=== PATIENT | female | born 1935 | race Caucasian/White ===

== ENCOUNTER 2017-03-20 11:10 | Outpatient (CLI) | payer MEDICARE, BC ==
--- NOTE | 2017-03-20 12:48 | RAD ---
TWO VIEWS OF THE CHEST: HISTORY: Cough. COMPARISON: 04/28/2011 FINDINGS: Two views of the chest show an enlarged cardiomediastinal silhouette with atherosclerotic calcificati ons in the aorta. Increased interstitial markings are present. A calcified granuloma projects over the right thorax. There is no evidence of consolidation or pleural effusion. Degenerative changes a re seen in the spine. IMPRESSION: No evidence of acute cardiopulmonary disease. POS: [facility]
== END 2017-03-20 11:11 | disposition home or self-care (01) ==
LOC: RAD-FRANK 11:10
PROVIDERS: ATTEND Nurse Practitioner Family
DX: R05 Cough (principal)
CPT/HCPCS: 71046

== ENCOUNTER 2017-08-25 09:20 | Outpatient (CLI) | payer MEDICARE, BC ==
--- NOTE | 2017-08-25 10:22 | RAD ---
CHEST 2 VIEWS: HISTORY: Cough. COMPARISON: 03/20/17. FINDINGS: Cardiac silhouette is enlarged. Pulmonary vasculature unremarkable. Lungs remain hyperinflated. Me diastinum midline with aortic calcification. Calcified granulomata are consistent with healed granul omatous disease. No lobar consolidation, pneumothorax, or pleural fluid. IMPRESSION: 1. Cardiomegaly. 2. Chronic obstructive pulmonary disease. 3. Atherosclerosis. POS: [facility]
== END 2017-08-25 09:21 | disposition home or self-care (01) ==
LOC: RAD-FRANK 09:20
PROVIDERS: ATTEND Nurse Practitioner Family
DX: R05 Cough (principal); J44.9 Chronic obstructive pulmonary disease, unspecified; I51.7 Cardiomegaly; I70.0 Atherosclerosis of aorta
CPT/HCPCS: 71046

== ENCOUNTER 2019-05-04 19:03 | Observation (INO) | payer MEDICARE, BC ==
[2019-05-04 19:51] LABS: #Basophils 0.1 thou/uL (0.0-0.2); #Eosinphils 0.3 thou/uL (0.0-0.7); #Lymphocytes 1.8 thou/uL (1.20-3.40); #Neutrophils 13.9 thou/uL (1.40-6.50); %Basophils 0.3 % (0.0-1.0); %Eosinophils 1.7 % (0.0-10.0); %Lymphocytes 10.6 % (21.0-51.0); %Neutrophils 81.4 % (42.0-75.0); Hemoglobin 14.4 g/dL (12.0-16.0); Mean Corpuscular Hemoglobin 31.7 pg (27.0-31.0); Mean Corpuscular Volume 93.2 fL (78.0-98.0); Mean Platelet Volume 8.9 fL (7.4-10.4); Platelet Count 217 thou/uL (130-400); RBC Distribution Width 12.4 % (11.5-14.5); Red Blood Cell (RBC) Count 4.54 mill/uL (4.20-5.40)
[2019-05-04 20:11] LABS: ALT (SGPT) 11 U/L (8-55); AST (SGOT) 11 U/L (5-34); Albumin 4.1 g/dL (3.4-4.8); Alkaline Phosphatase 112 U/L (40-110); Anion Gap 18 mmol/L (10-20); BUN (Urea Nitrogen) 23 mg/dL (9.8-20.1); Bilirubin, Total 0.7 mg/dL (0.2-1.2); CK (CPK) 35 U/L (29-168); Calc. Creatinine Clearance 0 mL/min (70-130); Calcium 9.9 mg/dL (7.8-10.44); Carbon Dioxide 24 mmol/L (23-31); Chloride 98 mmol/L (98-107); Estimated GFR-MDRD 28; Globulin 3.2 g/dL (2.4-3.5); Glucose 293 mg/dL (83-110); Potassium 3.8 mmol/L (3.5-5.1); Protein, Total 7.3 g/dL (6.0-8.3); Sodium 136 mmol/L (136-145)
--- NOTE | 2019-05-04 20:29 | RAD ---
Portable frontal chest radiograph: 05/04/2019 COMPARISON: 09/05/2010 and 08/25/2017 HISTORY: Chest pain and back pain FINDINGS: There is atherosclerotic calcification of the aortic arch. There is stable enlargement of t he cardiac silhouette. No pneumothorax or pleural fluid. No focal consolidation or alveolar edema. IMPRESSION: No acute findings.
[2019-05-04] MEDS ORDERED: Ondansetron PF 4 MG/2 ML Vial ONE (21:04)
[2019-05-04] MEDS ORDERED: Piperacillin/Tazobactam 4.5 GM VIAL ONE (22:08)
[2019-05-04] MEDS ORDERED: cefTRIAXone\\ROCEPHIN 2 GM VIAL ONE (22:08)
[2019-05-04] MEDS ORDERED: Nitroglycerin 0.4 MG TAB (25 Tab Bottle) PO PRN (22:23)
[2019-05-04] MEDS ORDERED: Aspirin 325 MG TAB PO SCH (22:45)
[2019-05-04 23:09] LABS: Bilirubin Negative (Negative); Blood, Urine Trace (Negative); Glucose, Urine (Dipstick) 500 mg/dL (Negative); Leukocyte Negative (Negative); Nitrite Negative (Negative); Protein, Urine (Dipstick) Trace mg/dL (Neg-Trace); Urobilinogen 0.2 mg/dL (Less than 2)
[2019-05-04 23:12] LABS: Clarity Hazy (Clear)
[2019-05-04 23:13] LABS: Bacteria/HPF None Seen HPF (None Seen); RBC/HPF 0-3 HPF (0-3); Squamous Epithelial 0-3 HPF (0-3); WBC/HPF 0-3 HPF (0-3)
[2019-05-04 23:42] LABS: Troponin I 0.022 ng/mL (< 0.028)
[2019-05-04 23:47] VITALS: BMI 31.3
[2019-05-04] MEDS ORDERED: Ondansetron ODT 4 MG TAB SL PRN (23:52)
[2019-05-04] MEDS ORDERED: Ondansetron PF 4 MG/2 ML Vial IVP PRN (23:52)
[2019-05-04] MEDS ORDERED: Acetaminophen 325 MG TAB PO PRN (23:52)
[2019-05-05] MEDS: Sodium Chloride 0.9% 1,000 ML IV SCH ×2 (00:21→04:25)
[2019-05-05 00:40] LABS: Lactic Acid 3.1 mmol/L (0.5-2.2)
[2019-05-05 01:50] LABS: Troponin I 0.028 ng/mL (< 0.028)
--- NOTE | 2019-05-05 03:30 | HP ---
CHIEF COMPLAINT: Chest pain. HISTORY OF PRESENT ILLNESS: Ms. Sanchez is an 84-year-old female with past medical history of atrial fibrillation, hypertension, skin cancer, who presents to the emergency room with chest pain and nausea that started earlier today. The patient reported that she initially felt pain which was described like a broken rib only when rolling over. She states she went out to a restaurant when she experienced sudden onset of chest pain and nausea. The chest pain resolved, but it came back again. She said that her blood sugar has been running 191 lately. The patient has a history of heart attack in the past. Initial workup in the emergency room, the patient was found to be in acute renal failure, appears dehydrated. Creatinine is 1.7. Lactic acid is elevated at 3.3. WBC count elevated at 17.0. Urinalysis is still pending at the time of this dictation. Initial troponin 0.02. EKG, no acute changes. Given the patient's presentation and risk factors, the patient is being admitted to the hospital for further management. PAST MEDICAL HISTORY: As mentioned above in the history of present illness. PAST SURGICAL HISTORY: Breast biopsy. SOCIAL HISTORY: Denies smoking, alcohol drinking, or drug abuse. FAMILY HISTORY: Reviewed and noncontributory. HOME MEDICATIONS: Please see home medication reconciliation form for updated medications. ALLERGIES: ALLERGIC TO DEMEROL, MORPHINE. REVIEW OF SYSTEMS: Review of 14 systems negative except what is mentioned in history of present illness. PHYSICAL EXAMINATION: GENERAL: The patient is awake, alert, in moderate distress. VITAL SIGNS: Blood pressure 158/83, respiratory rate is 18, pulse is 85, temperature 98.6. HEAD AND NECK: Normocephalic, atraumatic. NECK: Supple. No JVD. CHEST: Fair bilateral entry. HEART: Irregularly irregular. ABDOMEN: Soft, nontender. Bowel sounds present. NEUROLOGIC: Awake, alert, oriented x3. PSYCHIATRIC: Normal mood. EXTREMITIES: No clubbing or cyanosis. LABORATORY DATA: As mentioned above in history of present illness. Chest x-ray, no acute finding. ASSESSMENT: 1. Acute chest pain, rule out acute coronary syndrome. 2. Acute kidney injury. 3. Atrial fibrillation. 4. Leukocytosis. PLAN: 1. Admit. 2. Telemetry monitoring. 3. Serial troponins. 4. Follow urinalysis results. In the meantime, patient will be given one dose of IV antibiotic, reassess in a.m. 5. IV fluid hydration. 6. Monitor kidney function and urine output. 7. Reconcile home medications. 8. DVT prophylaxis as appropriate. 9. Expected length of stay, at least 1 midnight if patient is stable and further workup negative. Job ID: [id number]
[2019-05-05] MEDS ORDERED: Heparin 5,000 UNITS/ML VIAL SC SCH (09:00)
[2019-05-05] MEDS ORDERED: Aspirin 325 mg Enteric Coated Tablet PO SCH (09:00)
[2019-05-05 11:28] LABS: #Basophils 0.1 thou/uL (0.0-0.2); #Eosinphils 0.3 thou/uL (0.0-0.7); #Lymphocytes 1.8 thou/uL (1.20-3.40); #Monocytes 0.6 thou/uL (0.11-0.59); #Neutrophils 7.5 thou/uL (1.40-6.50); %Basophils 0.5 % (0.0-1.0); %Eosinophils 2.5 % (0.0-10.0); %Lymphocytes 17.3 % (21.0-51.0); %Neutrophils 73.6 % (42.0-75.0); Hemoglobin 13.3 g/dL (12.0-16.0); Mean Corpuscular HGB CONC 33.9 g/dL (32.0-36.0); Mean Corpuscular Hemoglobin 31.6 pg (27.0-31.0); Mean Platelet Volume 8.5 fL (7.4-10.4); Platelet Count 184 thou/uL (130-400); RBC Distribution Width 12.3 % (11.5-14.5); White Blood Cell (WBC) Count 10.2 thou/uL (4.8-10.8)
[2019-05-05 11:52] LABS: Anion Gap 13 mmol/L (10-20); BUN (Urea Nitrogen) 11 mg/dL (9.8-20.1); Calc. Creatinine Clearance 75 mL/min (70-130); Calcium 8.9 mg/dL (7.8-10.44); Carbon Dioxide 26 mmol/L (23-31); Chloride 104 mmol/L (98-107); Estimated GFR-MDRD 65; Glucose 168 mg/dL (83-110); Potassium 3.4 mmol/L (3.5-5.1); Sodium 140 mmol/L (136-145)
[2019-05-05] MEDS ORDERED: Potassium Chloride 20 MEQ TAB PO SCH (13:00)
[2019-05-05 14:02] LABS: Lactic Acid 1.5 mmol/L (0.5-2.2)
--- NOTE | 2019-05-05 15:25 | RAD ---
Thoracic spine 2 views HISTORY: Back pain. FINDINGS: There are 12 thoracic type vertebrae. Pedicles are intact. Moderate S shaped rotatory scoli otic curvature. Vertebral body heights are maintained on the lateral view. Osteophytosis throughout the vertebral bodies and facets. Osseous structures are demineralized. IMPRESSION: Osseous degenerative changes. No compression fracture is apparent on this exam. CT thorac ic spine is pending. Osteoporosis.
[2019-05-05] MEDS ORDERED: Ondansetron PF 4 MG/2 ML Vial IVP PRN (15:35)
--- NOTE | 2019-05-05 15:36 | CT ---
CT chest noncontrast CT thoracic spine noncontrast HISTORY: Chest and back pain. FINDINGS: Scattered areas of brachial scarring are present throughout each lung. No lobar consolidati on. Calcified granulomata are consistent with healed granulomatous disease. A groundglass and a solid tiny nodule within the lateral segment right middle lobe are stable. No pleural fluid or pneumo thorax. Heart is enlarged. Lack of contrast limits evaluation of the soft tissues. Nonspecific lymph nodes ar e scattered throughout the mediastinum. The partially calcified lobular soft tissue density nodule within the prevascular space of the mediastinum is unchanged from the 2016 exam. Within the partially visualized upper abdomen, cysts are again seen within the liver. Gallbladder is surgically absent. Large area of dystrophic calcification within the spleen is stable. The inferior most images partiall y demonstrate an exophytic 1.0 cm hyperdense cyst at the posterior cortex of the left kidney. This area has not been imaged on previous exams. Old healed fracture of the posterior aspect of right rib 10. No acute rib fractures are apparent. Vertebral body heights and alignment of the thoracic spine are maintained. Very mild S-shaped curvatu re on the coronal reformatted images. Osteophytosis throughout the vertebral bodies and facets. IMPRESSION: Old healed right posterior 10th rib fracture. No acute injury is evident. Cardiomegaly. Chronic-type findings are stable. Atherosclerosis. No evidence of acute rib fracture or vertebral fracture.
[2019-05-05 16:22] VITALS: TEMP 98.5
[2019-05-05] MEDS ORDERED: Carvedilol 6.25 MG TAB PO SCH (17:00)
[2019-05-05] MEDS ORDERED: NIFEdipine XL 30 MG TAB PO SCH (17:30)
[2019-05-05 17:53] VITALS: BP 174/91
[2019-05-05] MEDS ORDERED: cefTRIAXone\\ROCEPHIN 1 GM in Sodium Chloride 0.9% 100 ML IVPB SCH (22:00)
[2019-05-06] MEDS ORDERED: NIFEdipine XL 30 MG TAB PO SCH (09:00)
--- NOTE | 2019-05-07 07:53 | DIS ---
DATE OF ADMISSION: 05/04/2019 DATE OF DISCHARGE: 05/05/2019 DISCHARGE DIAGNOSES: Chest and back pain likely secondary to musculoskeletal etiology, Severe dehydration, hypokalemia, lactic acidosis, acute renal failure. CONSULTATIONS: None. PROCEDURES: None. BRIEF HISTORY OF PRESENT ILLNESS: This is an 84-year-old female with a past medical history of atrial fibrillation, hypertension, skin cancer, presented with chest pain and nausea. The patient states that she went out to a restaurant and ate some fried food. Shortly after, she had described chest pain in the anterior part of her chest as well as severe back pain. The patient describes her back pain as a stabbing sensation and her chest pain as a soreness. She states that her pain was worse with moving and turning in certain positions. It was also worse with ambulating. It had resolved and then reoccurred, so she decided to come to the emergency room. She denied any arm numbness, palpitations, diaphoresis, shortness of breath. Upon arrival to the emergency room, her vital signs were unremarkable except for a blood pressure of 170. She did have a white count of 17, and a lactic acid of 3.3. She was given ceftriaxone empirically for possible pneumonia and she was admitted for further workup. HOSPITAL COURSE: Chest pain/back pain: The patient had EKG, which showed no new changes. Troponins were negative x3. The patient was noted to have spinal tenderness in her thoracic spine around T4. She also had some rib tenderness around T7 anteriorly. She does have subluxation of her ribs bilaterally in the front. She did have a CT scan of her chest, which showed old rib fracture in the 10th rib on the right. No new rib fractures. Thoracic spine x-ray showed degenerative changes. The patient is in no significant pain on the day of discharge. She had recent stress test 6 months ago that was normal, so coronary etiology was less likely. She will follow up with her PCP in a week. Lactic acidosis secondary to dehydration/acute renal failure: The patient presented with a lactic acid of 3.3. She did have blood cultures that were negative. Flu panel was negative and urine culture was normal. Chest x-ray showed no evidence of pneumonia. She was treated with IV fluids and her lactic acidosis resolved. Her antihypertensives were initially held and two of them resumed on the day of discharge. She did have a CT scan of her chest done on the day of discharge due to complaints of rib pain. This showed no evidence of any rib fracture or pneumonia. She was discharged without any antibiotics. Leukocytosis: The patient had a white count of 17 on admission. She was afebrile while in the hospital. Blood cultures, influenza, urine culture, CT chest showed no evidence of infection. She was discharged without any antibiotics. She can have repeat CBC with her PCP. Hypokalemia: The patient had a potassium of 3.4 on the day of discharge. This was replaced. She should have her repeat BMP done as an outpatient. Hypertension: The patient's hypertensives were initially held. Her blood pressure then increased to 170 and her nifedipine and Coreg were resumed with improvement in her blood pressure. She was advised to hold her lisinopril given her acute kidney injury on presentation, resume it only if her blood pressure is greater than 140. DISCHARGE PHYSICAL EXAMINATION: VITAL SIGNS: Temperature 98.3, heart rate 78, respiratory rate 16, O2 saturation 96% on room air, blood pressure 161/77. GENERAL: The patient is alert, awake, oriented x3. CVS: Regular rate and rhythm with no murmurs, rubs, or gallops. LUNGS: Clear to auscultation bilaterally. ABDOMEN: Positive bowel sounds, soft, nontender, nondistended. EXTREMITIES: No edema. MUSCULOSKELETAL: The patient has rib tenderness on the left rib around T7 and has spinal tenderness on T4 in the spinal area. PERTINENT LABORATORY DATA: CBC 05/04: Unremarkable. BMP 05/04: Potassium is 3.4. Lactic acid: 3.3, 3.1, 1.5. Troponin I: 0.023, 0.022, 0.028. UA 05/03: Glucose 500, trace blood, 4 to 6 hyaline casts. IMAGING STUDIES: Chest x-ray 05/03: No acute findings. CT chest noncontrast: There is old right posterior 10th rib fracture. There is a 1 cm hyperdense cyst at the left kidney. Nonspecific lymph nodes scattered throughout the mediastinum. Large area of dystrophic calcification within the spleen is stable. Calcified granuloma consistent with a healed granulomatous disease. Solitary nodule within the lateral segment of right middle lobe is stable. There is cardiomegaly. No evidence of acute rib fracture or vertebral fracture. Thoracic spine x-ray, 05/04: non degenerative changes. Osteoporosis. DISCHARGE CONDITION: Stable. ACTIVITY: As tolerated. DIET: Heart healthy diet. DISCHARGE MEDICATIONS: All home medications were resumed. The patient is advised to hold her lisinopril unless her blood pressure is greater than 140. DISCHARGE INSTRUCTIONS: The patient to follow up with her PCP in a week. She should have reassessment about whether the patient really needs lisinopril or not given her PENELOPE and reassessment of her blood pressure. Job ID: [id number] [email or web address]
--- NOTE | 2019-05-11 09:49 | EKG ---
Test Reason : Blood Pressure : / mmHG Vent. Rate : 081 BPM Atrial Rate : 080 BPM P-R Int : 000 ms QRS Dur : 076 ms QT Int : 352 ms P-R-T Axes : 000 027 -60 degrees QTc Int : 408 ms Atrial fibrillation Possible Inferior infarct , age undetermined Anteroseptal infarct , age undetermined Abnormal ECG Confirmed by DAVION MUNIZ ([id number]), television news video editor KIMBERLY JARA ([id number]) on 05/11/2019 9:49:37 AM Referred By: Confirmed By:DAVION MUNIZ
== END 2019-05-05 18:25 | disposition home or self-care (01) ==
LOC: ERS 19:03 → 2SW 22:26
PROVIDERS: ADMIT Internal Medicine; ATTEND Internal Medicine
DX: R07.9 Chest pain, unspecified (principal); M54.9 Dorsalgia, unspecified; N17.9 Acute kidney failure, unspecified; E86.0 Dehydration; E87.2 Acidosis; D72.829 Elevated white blood cell count, unspecified; E87.6 Hypokalemia; I10 Essential (primary) hypertension; I48.91 Unspecified atrial fibrillation; I25.2 Old myocardial infarction; Q61.01 Congenital single renal cyst; M81.0 Age-related osteoporosis without current pathological fracture; Z79.01 Long term (current) use of anticoagulants; Z79.899 Other long term (current) drug therapy; Z88.5 Allergy status to narcotic agent
CPT/HCPCS: 36415; 36416; 71045; 71250; 72070; 80048; 80053; 81003; 81015; 82550; 83605; 83880; 84484; 85025; 87040; 87086; 87804; 93005; 94760; 96361; 96365; 96367; 96372; 96375; G0378; J0696; J1644; J2405; J2543

== ENCOUNTER 2022-06-07 08:33 | Outpatient (CLI) | payer MEDICARE, BC | END 2022-06-07 08:34 | disposition home or self-care (01) | LOC: RAD-FRANK 08:33 | PROVIDERS: ATTEND Nurse Practitioner Family | DX: R05.9 Cough, unspecified (principal) | CPT/HCPCS: 71046 ==

== ENCOUNTER 2022-09-19 10:22 | Inpatient (IN) | payer MEDICARE, BC ==
[~2022-09-19 10:22] MED LIST: Iopamidol-370 76% 500 ML MDV (1 ML CHARGE) ONE
[2022-09-19 11:12] LABS: #Basophils 0.1 thou/uL (0.0-0.2); #Eosinphils 0.2 thou/uL (0.0-0.7); #Monocytes 0.8 thou/uL (0.11-0.59); #Neutrophils 10.7 thou/uL (1.40-6.50); %Basophils 0.5 % (0.0-1.0); %Eosinophils 1.6 % (0.0-10.0); %Lymphocytes 8.5 % (21.0-51.0); %Neutrophils 81.8 % (42.0-75.0); Hematocrit 39.6 % (36.0-47.0); Hemoglobin 12.6 g/dL (12.0-16.0); Mean Corpuscular HGB CONC 31.8 g/dL (32.0-36.0); Mean Corpuscular Hemoglobin 30.3 pg (27.0-31.0); Mean Corpuscular Volume 95.2 fl (78.0-98.0); Mean Platelet Volume 10.4 fL (7.4-10.4); Platelet Count 218 10x3/uL (130-400); RBC Distribution Width 13.5 % (11.5-14.5); Red Blood Cell (RBC) Count 4.16 mill/uL (4.20-5.40); White Blood Cell (WBC) Count 13.1 10x3/uL (4.8-10.8)
[2022-09-19 11:47] LABS: ALT (SGPT) 14 U/L (8-55); AST (SGOT) 16 U/L (5-34); Albumin 4.2 g/dL (3.4-4.8); Alkaline Phosphatase 96 U/L (40-110); Anion Gap 15 mmol/L (10-20); BUN (Urea Nitrogen) 20 mg/dL (9.8-20.1); Bilirubin, Total 0.9 mg/dL (0.2-1.2); Calc. Creatinine Clearance 0 mL/min (70-130); Calcium 9.6 mg/dL (7.8-10.44); Carbon Dioxide 24 mmol/L (23-31); Chloride 101 mmol/L (98-107); Estimated GFR 59; Globulin 3.1 g/dL (2.4-3.5); Glucose 170 mg/dL (83-110); Lipase 27 U/L (8-78); Potassium 4.6 mmol/L (3.5-5.1); Protein, Total 7.3 g/dL (5.8-8.1); Sodium 135 mmol/L (136-145)
[2022-09-19] MEDS ORDERED: Aspirin Chewable 81 MG TAB ONE (12:27)
[2022-09-19] MEDS ORDERED: Furosemide 40 MG/4 ML VIAL ONE (12:27)
[2022-09-19 12:54] LABS: Magnesium 1.9 mg/dL (1.6-2.6)
[2022-09-19] MEDS ORDERED: Magnesium 2 GM/50 ML(in water) 2 GM in Premix Bag 1 BAG IVPB SCH (14:45)
[2022-09-19] MEDS ORDERED: Electrolyte Replacement Protocol FS PRN (14:45)
[2022-09-19] MEDS ORDERED: Electrolyte Replacement Protocol 1 EACH FS SCH (14:45)
[2022-09-19] MEDS ORDERED: Senokot S 8.6-50 MG TAB PO PRN (15:50)
[2022-09-19] MEDS ORDERED: Calcium Carbonate 500 MG ChewTAB PO PRN (15:50)
[2022-09-19] MEDS ORDERED: Ondansetron PF 4 MG/2 ML Vial IVP PRN (15:50)
[2022-09-19] MEDS ORDERED: Ondansetron ODT 4 MG TAB PO PRN (15:50)
[2022-09-19] MEDS ORDERED: Nitroglycerin 0.4 MG TAB (25 Tab Bottle) SL PRN (15:56)
[2022-09-19 17:44] LABS: Troponin I 0.014 ng/mL (< 0.028)
[2022-09-19 19:17] VITALS: BMI 32.1
[2022-09-19 19:17] LABS: Troponin I 0.019 ng/mL (< 0.028)
[2022-09-19] MEDS ORDERED: Apixaban 5 MG TAB PO SCH (21:00)
[2022-09-19] MEDS: NIFEdipine XL 30 MG TAB PO SCH (21:14)
[2022-09-19] MEDS: Simvastatin 10 MG TAB PO SCH (21:14)
[2022-09-19] MEDS: Doxycycline 100 MG CAP PO SCH (21:15)
[2022-09-19] MEDS: Famotidine 20 MG TAB PO SCH (21:15)
[2022-09-19] MEDS: Carvedilol 6.25 MG TAB PO SCH (21:17)
[2022-09-19] MEDS: cefTRIAXone\\ROCEPHIN 1 GM in Sodium Chloride 0.9% 100 ML IVPB SCH (21:37)
[2022-09-20 05:14] LABS: #Basophils 0.1 thou/uL (0.0-0.2); #Eosinphils 0.3 thou/uL (0.0-0.7); #Monocytes 0.9 thou/uL (0.11-0.59); #Neutrophils 10.1 thou/uL (1.40-6.50); %Basophils 0.4 % (0.0-1.0); %Eosinophils 2.3 % (0.0-10.0); %Lymphocytes 10.3 % (21.0-51.0); %Monocytes 6.9 % (0.0-10.0); %Neutrophils 78.8 % (42.0-75.0); Hematocrit 38.1 % (36.0-47.0); Hemoglobin 12.5 g/dL (12.0-16.0); Mean Corpuscular HGB CONC 32.8 g/dL (32.0-36.0); Mean Corpuscular Hemoglobin 30.7 pg (27.0-31.0); Mean Corpuscular Volume 93.6 fl (78.0-98.0); Mean Platelet Volume 10.2 fL (7.4-10.4); Platelet Count 206 10x3/uL (130-400); RBC Distribution Width 13.5 % (11.5-14.5); Red Blood Cell (RBC) Count 4.07 mill/uL (4.20-5.40); White Blood Cell (WBC) Count 12.8 10x3/uL (4.8-10.8)
[2022-09-20 05:43] LABS: ALT (SGPT) 13 U/L (8-55); AST (SGOT) 14 U/L (5-34); Albumin 3.9 g/dL (3.4-4.8); Alkaline Phosphatase 89 U/L (40-110); Anion Gap 13 mmol/L (10-20); BUN (Urea Nitrogen) 16 mg/dL (9.8-20.1); Bilirubin, Total 0.8 mg/dL (0.2-1.2); Calc. Creatinine Clearance 66 mL/min (70-130); Calcium 9.5 mg/dL (7.8-10.44); Carbon Dioxide 28 mmol/L (23-31); Chloride 99 mmol/L (98-107); Estimated GFR 60; Globulin 3.2 g/dL (2.4-3.5); Glucose 122 mg/dL (83-110); Magnesium 2.2 mg/dL (1.6-2.6); Potassium 3.3 mmol/L (3.5-5.1); Protein, Total 7.1 g/dL (5.8-8.1); Sodium 137 mmol/L (136-145)
[2022-09-20] MEDS ORDERED: Potassium Chloride 20 MEQ TAB PO SCH (06:00)
[2022-09-20] MEDS: Furosemide 20 MG/2 ML VIAL SLOW IVP SCH ×2 (06:26→14:34)
[2022-09-20 07:41] LABS: Cardiac Risk 3.1 (Less than 4.5)
[2022-09-20 08:03] LABS: Hemoglobin A1c 7.1 % (4.0-6.0)
[2022-09-20] MEDS: Doxycycline 100 MG CAP PO SCH ×2 (10:04→21:17)
[2022-09-20] MEDS: NIFEdipine XL 30 MG TAB PO SCH ×2 (10:04→21:16)
[2022-09-20] MEDS: Famotidine 20 MG TAB PO SCH ×2 (10:04→21:16)
[2022-09-20] MEDS: Digoxin 0.125 MG TAB PO SCH (10:04)
[2022-09-20] MEDS: Glimepiride 2 MG TAB PO SCH (10:04)
[2022-09-20] MEDS: Carvedilol 6.25 MG TAB PO SCH ×2 (10:04→17:24)
[2022-09-20] MEDS: Spironolactone 25 MG TAB PO SCH (10:06)
[2022-09-20] MEDS: Empagliflozin 10 MG TAB PO SCH (10:06)
[2022-09-20] MEDS: Lisinopril 20 MG TAB PO SCH (10:06)
[2022-09-20] MEDS ORDERED: Dextrose 50% Abboject 50 ML SYRINGE IVP PRN (16:30)
[2022-09-20] MEDS ORDERED: Glucagon 1 MG/ML KIT IM PRN (16:30)
[2022-09-20] MEDS ORDERED: Dextrose 5% in Water 1,000 ML IV PRN (16:30)
[2022-09-20] MEDS: Acetaminophen 325 MG TAB PO PRN (17:26)
[2022-09-20] MEDS: cefTRIAXone\\ROCEPHIN 1 GM in Sodium Chloride 0.9% 100 ML IVPB SCH (21:16)
[2022-09-20] MEDS: Simvastatin 10 MG TAB PO SCH (21:16)
[2022-09-21 05:00] LABS: Anion Gap 13 mmol/L (10-20); BUN (Urea Nitrogen) 18 mg/dL (9.8-20.1); Calc. Creatinine Clearance 65 mL/min (70-130); Calcium 9.3 mg/dL (7.8-10.44); Carbon Dioxide 28 mmol/L (23-31); Chloride 97 mmol/L (98-107); Estimated GFR 61; Glucose 113 mg/dL (83-110); Potassium 3.3 mmol/L (3.5-5.1); Sodium 135 mmol/L (136-145)
[2022-09-21] MEDS: Acetaminophen 325 MG TAB PO PRN ×2 (05:02→18:36)
[2022-09-21] MEDS: Furosemide 20 MG/2 ML VIAL SLOW IVP SCH (05:03)
[2022-09-21] MEDS ORDERED: Furosemide 20 MG/2 ML VIAL SLOW IVP SCH (06:32)
[2022-09-21] MEDS ORDERED: Potassium Chloride 20 MEQ TAB PO SCH (08:00)
[2022-09-21] MEDS: Digoxin 0.125 MG TAB PO SCH (09:07)
[2022-09-21] MEDS: Empagliflozin 10 MG TAB PO SCH (09:08)
[2022-09-21] MEDS: Famotidine 20 MG TAB PO SCH ×2 (09:08→20:37)
[2022-09-21] MEDS: Lisinopril 20 MG TAB PO SCH (09:08)
[2022-09-21] MEDS: NIFEdipine XL 30 MG TAB PO SCH ×2 (09:08→20:38)
[2022-09-21] MEDS: Carvedilol 6.25 MG TAB PO SCH ×2 (09:08→16:07)
[2022-09-21] MEDS: Glimepiride 2 MG TAB PO SCH (09:08)
[2022-09-21] MEDS: Spironolactone 25 MG TAB PO SCH (09:08)
[2022-09-21] MEDS: Furosemide 40 MG/4 ML VIAL SLOW IVP SCH ×2 (09:09→16:06)
[2022-09-21] MEDS: Doxycycline 100 MG CAP PO SCH ×2 (09:09→20:38)
[2022-09-21] MEDS ORDERED: Lidocaine 4% Patch TD SCH (11:45)
[2022-09-21] MEDS: HYDROcodone/Acetaminophen 5/325 mg Tablet PO PRN ×2 (12:16→20:36)
[2022-09-21] MEDS: HumaLOG 300 UNITS/3 ML VIAL SC PRN ×2 (17:29→23:34)
[2022-09-21] MEDS: cefTRIAXone\\ROCEPHIN 1 GM in Sodium Chloride 0.9% 100 ML IVPB SCH (20:36)
[2022-09-21] MEDS: Simvastatin 10 MG TAB PO SCH (20:38)
[2022-09-21] MEDS ORDERED: LIDOCAINE Patch Removal TOP SCH (23:59)
[2022-09-22 04:45] LABS: #Basophils 0.1 thou/uL (0.0-0.2); #Eosinphils 0.2 thou/uL (0.0-0.7); #Monocytes 1.5 thou/uL (0.11-0.59); %Basophils 0.4 % (0.0-1.0); %Eosinophils 1.4 % (0.0-10.0); %Lymphocytes 9.9 % (21.0-51.0); %Monocytes 9.7 % (0.0-10.0); %Neutrophils 77.5 % (42.0-75.0); Hematocrit 39.6 % (36.0-47.0); Hemoglobin 13.2 g/dL (12.0-16.0); Mean Corpuscular HGB CONC 33.3 g/dL (32.0-36.0); Mean Corpuscular Hemoglobin 30.7 pg (27.0-31.0); Mean Corpuscular Volume 92.1 fl (78.0-98.0); Mean Platelet Volume 10.2 fL (7.4-10.4); Platelet Count 240 10x3/uL (130-400); RBC Distribution Width 13.4 % (11.5-14.5); White Blood Cell (WBC) Count 15.5 10x3/uL (4.8-10.8)
[2022-09-22 05:17] LABS: Anion Gap 17 mmol/L (10-20); BUN (Urea Nitrogen) 29 mg/dL (9.8-20.1); Calc. Creatinine Clearance 47 mL/min (70-130); Calcium 10.6 mg/dL (7.8-10.44); Carbon Dioxide 27 mmol/L (23-31); Chloride 99 mmol/L (98-107); Estimated GFR 42; Glucose 109 mg/dL (83-110); Potassium 3.9 mmol/L (3.5-5.1); Sodium 139 mmol/L (136-145)
[2022-09-22] MEDS: Furosemide 40 MG/4 ML VIAL SLOW IVP SCH ×2 (06:25→15:44)
[2022-09-22] MEDS ORDERED: CEFAZOLIN 2 GM in Sodium Chloride 0.9% 100 ML IVPB SCH (07:30)
[2022-09-22] MEDS: Digoxin 0.125 MG TAB PO SCH (09:01)
[2022-09-22] MEDS: Doxycycline 100 MG CAP PO SCH ×2 (09:01→21:27)
[2022-09-22] MEDS: Glimepiride 2 MG TAB PO SCH (09:02)
[2022-09-22] MEDS: Spironolactone 25 MG TAB PO SCH (09:02)
[2022-09-22] MEDS: NIFEdipine XL 30 MG TAB PO SCH ×2 (09:02→21:27)
[2022-09-22] MEDS: Carvedilol 6.25 MG TAB PO SCH ×2 (09:02→17:39)
[2022-09-22] MEDS: Lisinopril 20 MG TAB PO SCH (09:02)
[2022-09-22] MEDS: Empagliflozin 10 MG TAB PO SCH (09:02)
[2022-09-22] MEDS ORDERED: fentaNYL 50 mcg/mL 1 mL Vial ONE (10:03)
[2022-09-22] MEDS ORDERED: Bupivacaine HCl 0.5%/Epinephrine 1:200,000/PF 30 ml Vial ONE (10:30)
[2022-09-22] MEDS ORDERED: Dexamethasone 4 mg/ml Vial ONE (10:30)
[2022-09-22] MEDS ORDERED: Dexamethasone 20 MG/5 ML VIAL ONE (11:27)
[2022-09-22] MEDS ORDERED: PROPOFOL 200 MG/20 ML VIAL ONE (11:27)
[2022-09-22] MEDS ORDERED: Glycopyrrolate 0.2 MG/ML 5 ML SYRINGE ONE (11:27)
[2022-09-22] MEDS ORDERED: Rocuronium Bromide 10 MG/ML (10ML VIAL) ONE (11:27)
[2022-09-22] MEDS ORDERED: Succinylcholine 200 MG/10 ml SYRINGE FS ONE (11:27)
[2022-09-22] MEDS ORDERED: Lidocaine 1% PF 5 ML VIAL ONE (11:27)
[2022-09-22] MEDS ORDERED: NEOSTIGMINE 3 MG/3 ML SYR 3 MG/3 ML SYRINGE ONE (11:27)
[2022-09-22] MEDS ORDERED: Ondansetron PF 4 MG/2 ML Vial ONE (11:27)
[2022-09-22] MEDS ORDERED: Thrombin 5000 UNITS/5 ML VIAL ONE (12:02)
[2022-09-22] MEDS ORDERED: traMADol HCl 50 MG TAB PO PRN (14:23)
[2022-09-22] MEDS ORDERED: fentaNYL 50 mcg/mL 1 mL Vial SLOW IVP PRN (14:23)
[2022-09-22] MEDS: Acetaminophen 325 MG TAB PO PRN ×2 (16:30→22:27)
[2022-09-22] MEDS: Famotidine 20 MG TAB PO SCH (21:27)
[2022-09-22] MEDS: Simvastatin 10 MG TAB PO SCH (21:27)
[2022-09-22] MEDS: HumaLOG 300 UNITS/3 ML VIAL SC PRN (21:28)
[2022-09-22] MEDS: cefTRIAXone\\ROCEPHIN 1 GM in Sodium Chloride 0.9% 100 ML IVPB SCH (21:29)
[2022-09-23] MEDS: HumaLOG 300 UNITS/3 ML VIAL SC PRN ×4 (05:34→21:13)
[2022-09-23] MEDS: Doxycycline 100 MG CAP PO SCH (09:58)
[2022-09-23] MEDS: Spironolactone 25 MG TAB PO SCH (09:58)
[2022-09-23] MEDS: Furosemide 40 MG TAB PO SCH (09:59)
[2022-09-23] MEDS: Carvedilol 6.25 MG TAB PO SCH ×2 (10:00→17:48)
[2022-09-23] MEDS: NIFEdipine XL 30 MG TAB PO SCH ×2 (10:00→21:12)
[2022-09-23] MEDS: Digoxin 0.125 MG TAB PO SCH (10:01)
[2022-09-23] MEDS: Empagliflozin 10 MG TAB PO SCH (10:02)
[2022-09-23] MEDS: Glimepiride 2 MG TAB PO SCH (10:03)
[2022-09-23] MEDS: Lisinopril 20 MG TAB PO SCH (10:03)
[2022-09-23] MEDS: Famotidine 20 MG TAB PO SCH (21:13)
[2022-09-23] MEDS: Simvastatin 10 MG TAB PO SCH (21:13)
[2022-09-23] MEDS: Acetaminophen 325 MG TAB PO PRN (21:14)
[2022-09-24] MEDS: HYDROcodone/Acetaminophen 5/325 mg Tablet PO PRN (02:04)
[2022-09-24 04:06] LABS: #Basophils 0.1 thou/uL (0.0-0.2); #Monocytes 1.4 thou/uL (0.11-0.59); #Neutrophils 17.4 thou/uL (1.40-6.50); %Basophils 0.3 % (0.0-1.0); %Monocytes 6.7 % (0.0-10.0); %Neutrophils 85.9 % (42.0-75.0); Hematocrit 39.9 % (36.0-47.0); Hemoglobin 12.9 g/dL (12.0-16.0); Mean Corpuscular HGB CONC 32.3 g/dL (32.0-36.0); Mean Corpuscular Hemoglobin 30.3 pg (27.0-31.0); Mean Corpuscular Volume 93.7 fl (78.0-98.0); Mean Platelet Volume 10.3 fL (7.4-10.4); Platelet Count 278 10x3/uL (130-400); RBC Distribution Width 13.2 % (11.5-14.5); Red Blood Cell (RBC) Count 4.26 mill/uL (4.20-5.40); White Blood Cell (WBC) Count 20.3 10x3/uL (4.8-10.8)
[2022-09-24 04:31] LABS: Anion Gap 16 mmol/L (10-20); BUN (Urea Nitrogen) 59 mg/dL (9.8-20.1); Calc. Creatinine Clearance 44 mL/min (70-130); Calcium 10.5 mg/dL (7.8-10.44); Carbon Dioxide 24 mmol/L (23-31); Chloride 97 mmol/L (98-107); Estimated GFR 39; Glucose 152 mg/dL (83-110); Potassium 4.3 mmol/L (3.5-5.1); Sodium 133 mmol/L (136-145)
[2022-09-24] MEDS: HumaLOG 300 UNITS/3 ML VIAL SC PRN ×2 (05:29→17:06)
[2022-09-24] MEDS: NIFEdipine XL 30 MG TAB PO SCH ×2 (08:21→20:27)
[2022-09-24] MEDS: Empagliflozin 10 MG TAB PO SCH (08:22)
[2022-09-24] MEDS: Digoxin 0.125 MG TAB PO SCH (08:22)
[2022-09-24] MEDS: Glimepiride 2 MG TAB PO SCH (08:22)
[2022-09-24] MEDS: Spironolactone 25 MG TAB PO SCH (08:22)
[2022-09-24] MEDS: Apixaban 5 MG TAB PO SCH ×2 (08:22→20:28)
[2022-09-24] MEDS: Furosemide 40 MG TAB PO SCH (08:22)
[2022-09-24] MEDS: Carvedilol 6.25 MG TAB PO SCH ×2 (08:22→17:06)
[2022-09-24] MEDS: Lisinopril 20 MG TAB PO SCH (08:22)
[2022-09-24] MEDS: Famotidine 20 MG TAB PO SCH (20:27)
[2022-09-24] MEDS: Acetaminophen 325 MG TAB PO PRN (20:28)
[2022-09-24] MEDS: Simvastatin 10 MG TAB PO SCH (20:28)
[2022-09-25 04:17] LABS: #Basophils 0.1 thou/uL (0.0-0.2); #Eosinphils 0.4 thou/uL (0.0-0.7); #Monocytes 1.3 thou/uL (0.11-0.59); #Neutrophils 11.8 thou/uL (1.40-6.50); %Basophils 0.4 % (0.0-1.0); %Eosinophils 2.4 % (0.0-10.0); %Lymphocytes 14.3 % (21.0-51.0); %Monocytes 8.3 % (0.0-10.0); %Neutrophils 73.5 % (42.0-75.0); Hematocrit 38.6 % (36.0-47.0); Hemoglobin 12.5 g/dL (12.0-16.0); Mean Corpuscular HGB CONC 32.4 g/dL (32.0-36.0); Mean Corpuscular Hemoglobin 30.4 pg (27.0-31.0); Mean Corpuscular Volume 93.9 fl (78.0-98.0); Mean Platelet Volume 10.2 fL (7.4-10.4); Platelet Count 307 10x3/uL (130-400); RBC Distribution Width 13.2 % (11.5-14.5); Red Blood Cell (RBC) Count 4.11 mill/uL (4.20-5.40); White Blood Cell (WBC) Count 16.1 10x3/uL (4.8-10.8)
[2022-09-25 04:40] LABS: Anion Gap 14 mmol/L (10-20); BUN (Urea Nitrogen) 55 mg/dL (9.8-20.1); Calc. Creatinine Clearance 52 mL/min (70-130); Calcium 10.6 mg/dL (7.8-10.44); Carbon Dioxide 28 mmol/L (23-31); Chloride 100 mmol/L (98-107); Estimated GFR 47; Glucose 126 mg/dL (83-110); Sodium 138 mmol/L (136-145)
[2022-09-25] MEDS: Spironolactone 25 MG TAB PO SCH (08:27)
[2022-09-25] MEDS: Empagliflozin 10 MG TAB PO SCH (08:27)
[2022-09-25] MEDS: NIFEdipine XL 30 MG TAB PO SCH ×2 (08:27→20:43)
[2022-09-25] MEDS: Glimepiride 2 MG TAB PO SCH (08:27)
[2022-09-25] MEDS: Digoxin 0.125 MG TAB PO SCH (08:27)
[2022-09-25] MEDS: Apixaban 5 MG TAB PO SCH ×2 (08:27→20:44)
[2022-09-25] MEDS: Furosemide 40 MG TAB PO SCH (08:27)
[2022-09-25] MEDS: Carvedilol 6.25 MG TAB PO SCH ×2 (08:27→17:37)
[2022-09-25] MEDS: Lisinopril 20 MG TAB PO SCH (08:30)
[2022-09-25] MEDS: HumaLOG 300 UNITS/3 ML VIAL SC PRN ×2 (11:34→17:37)
[2022-09-25] MEDS: Simvastatin 10 MG TAB PO SCH (20:44)
[2022-09-25] MEDS: Famotidine 20 MG TAB PO SCH (20:44)
[2022-09-26 04:57] LABS: #Basophils 0.1 thou/uL (0.0-0.2); #Eosinphils 0.7 thou/uL (0.0-0.7); #Monocytes 1.3 thou/uL (0.11-0.59); #Neutrophils 10.7 thou/uL (1.40-6.50); %Basophils 0.4 % (0.0-1.0); %Lymphocytes 11.8 % (21.0-51.0); %Monocytes 8.8 % (0.0-10.0); %Neutrophils 72.6 % (42.0-75.0); Hematocrit 38.4 % (36.0-47.0); Hemoglobin 12.5 g/dL (12.0-16.0); Mean Corpuscular HGB CONC 32.6 g/dL (32.0-36.0); Mean Corpuscular Hemoglobin 30.3 pg (27.0-31.0); Platelet Count 284 10x3/uL (130-400); RBC Distribution Width 13.3 % (11.5-14.5); Red Blood Cell (RBC) Count 4.13 mill/uL (4.20-5.40); White Blood Cell (WBC) Count 14.7 10x3/uL (4.8-10.8)
[2022-09-26 05:23] LABS: Anion Gap 13 mmol/L (10-20); BUN (Urea Nitrogen) 52 mg/dL (9.8-20.1); Calc. Creatinine Clearance 56 mL/min (70-130); Calcium 10.1 mg/dL (7.8-10.44); Carbon Dioxide 26 mmol/L (23-31); Chloride 100 mmol/L (98-107); Estimated GFR 53; Glucose 161 mg/dL (83-110); Potassium 4.1 mmol/L (3.5-5.1); Sodium 135 mmol/L (136-145)
[2022-09-26] MEDS: Lisinopril 20 MG TAB PO SCH (09:31)
[2022-09-26] MEDS: Digoxin 0.125 MG TAB PO SCH (09:31)
[2022-09-26] MEDS: NIFEdipine XL 30 MG TAB PO SCH ×2 (09:31→19:57)
[2022-09-26] MEDS: Spironolactone 25 MG TAB PO SCH (09:31)
[2022-09-26] MEDS: Apixaban 5 MG TAB PO SCH ×2 (09:32→19:57)
[2022-09-26] MEDS: Carvedilol 6.25 MG TAB PO SCH ×2 (09:32→18:15)
[2022-09-26] MEDS: Glimepiride 2 MG TAB PO SCH (09:32)
[2022-09-26] MEDS: Furosemide 40 MG TAB PO SCH (09:32)
[2022-09-26] MEDS: Empagliflozin 10 MG TAB PO SCH (09:33)
[2022-09-26] MEDS: HumaLOG 300 UNITS/3 ML VIAL SC PRN ×3 (12:46→21:21)
[2022-09-26] MEDS: Famotidine 20 MG TAB PO SCH (19:57)
[2022-09-26] MEDS: Simvastatin 10 MG TAB PO SCH (19:57)
[2022-09-27] MEDS: HumaLOG 300 UNITS/3 ML VIAL SC PRN (06:19)
[2022-09-27] MEDS: Glimepiride 2 MG TAB PO SCH (10:21)
[2022-09-27] MEDS: Carvedilol 6.25 MG TAB PO SCH (10:21)
[2022-09-27] MEDS: Spironolactone 25 MG TAB PO SCH (10:22)
[2022-09-27] MEDS: Lisinopril 20 MG TAB PO SCH (10:22)
[2022-09-27] MEDS: Empagliflozin 10 MG TAB PO SCH (10:22)
[2022-09-27] MEDS: Digoxin 0.125 MG TAB PO SCH (10:22)
[2022-09-27] MEDS: Apixaban 5 MG TAB PO SCH (10:23)
[2022-09-27] MEDS: Furosemide 40 MG TAB PO SCH (10:23)
[2022-09-27] MEDS: NIFEdipine XL 30 MG TAB PO SCH (10:23)
[2022-09-27] MEDS ORDERED: Mineral Oil ENEMA PR SCH (12:00)
[2022-09-27] MEDS ORDERED: Senokot S 8.6-50 MG TAB PO SCH ×2 (12:15→21:00)
[2022-09-27 15:51] VITALS: BP 137/64; TEMP 98.2
== END 2022-09-27 16:40 | DRG 264 ==
LOC: ERS 10:22 → ERHOLD 12:41 → 2NO 18:01
PROVIDERS: ADMIT Internal Medicine; ATTEND Family Medicine
PROC: 0WBC0ZX Excision of Mediastinum, Open Approach, Diagnostic (ICD-10-PCS; principal; 2022-09-22)
DX: I11.0 Hypertensive heart disease with heart failure (principal); I50.23 Acute on chronic systolic (congestive) heart failure; J96.21 Acute and chronic respiratory failure with hypoxia; I48.21 Permanent atrial fibrillation; J98.11 Atelectasis; E78.5 Hyperlipidemia, unspecified; E11.9 Type 2 diabetes mellitus without complications; G47.33 Obstructive sleep apnea (adult) (pediatric); E83.42 Hypomagnesemia; R91.8 Other nonspecific abnormal finding of lung field; E66.01 Morbid (severe) obesity due to excess calories; M25.561 Pain in right knee; Z66 Do not resuscitate; R59.1 Generalized enlarged lymph nodes; R53.81 Other malaise; K59.01 Slow transit constipation; Z88.0 Allergy status to penicillin; Z88.5 Allergy status to narcotic agent; Z79.01 Long term (current) use of anticoagulants; Z79.899 Other long term (current) drug therapy; Z86.011 Personal history of benign neoplasm of the brain; Z90.49 Acquired absence of other specified parts of digestive tract; Z90.89 Acquired absence of other organs; Z90.710 Acquired absence of both cervix and uterus; Z98.49 Cataract extraction status, unspecified eye; Z82.49 Family history of ischemic heart disease and other diseases of the circulatory system; Z88.2 Allergy status to sulfonamides; Z85.828 Personal history of other malignant neoplasm of skin; Z68.29 Body mass index [BMI] 29.0-29.9, adult; Z98.41 Cataract extraction status, right eye; Z98.42 Cataract extraction status, left eye
CPT/HCPCS: 36415; 36416; 71045; 71275; 80048; 80053; 80061; 83036; 83690; 83735; 83880; 84145; 84443; 84484; 85025; 85379; 87040; 88184; 88185; 88189; 88307; 88341; 88342; 93005; 93306; 94760; 96374; J0696; J1100; J1815; J1940; J2405; J2704; J3010; J3475; J3490; Q9967

== ENCOUNTER 2022-10-12 14:23 | Outpatient (CLI) | payer MEDICARE, BC | END 2022-10-12 14:24 | disposition home or self-care (01) | LOC: RAD 14:23 | PROVIDERS: ATTEND Family Medicine | DX: J98.59 Other diseases of mediastinum, not elsewhere classified (principal) | CPT/HCPCS: 71046 ==

== ENCOUNTER → 2022-10-20 | Outpatient (CLI) | payer MEDICARE, BC | LOC: PET 11:00 | PROVIDERS: ATTEND Internal Medicine | DX: C37 Malignant neoplasm of thymus (principal); E04.1 Nontoxic single thyroid nodule; J98.59 Other diseases of mediastinum, not elsewhere classified | CPT/HCPCS: 78815; A9552 ==

== ENCOUNTER 2022-12-23 09:51 | Outpatient (CLI) | payer MEDICARE, BC | END 2022-12-23 09:52 | disposition home or self-care (01) | LOC: RAD-FRANK 09:51 | PROVIDERS: ATTEND Nurse Practitioner Family | DX: R05.9 Cough, unspecified (principal) | CPT/HCPCS: 71046 ==

== ENCOUNTER 2023-08-17 12:08 | Emergency (ER) | payer BC, MEDICARE ==
[2023-08-17 13:13] LABS: #Basophils 0.06 10x3/uL (0.0-0.2); %Basophils 0.4 % (0.0-1.0); %Eosinophils 2.8 % (0.0-10.0); %Lymphocytes 13.1 % (21.0-51.0); %Monocytes 5.4 % (0.0-10.0); %Neutrophils 77.2 % (42.0-75.0); Hematocrit 46.4 % (36.0-47.0); Hemoglobin 15.1 g/dL (12.0-16.0); Mean Corpuscular HGB CONC 32.5 g/dL (32.0-36.0); Mean Corpuscular Hemoglobin 31.7 pg (27.0-31.0); Mean Corpuscular Volume 97.3 fL (78.0-98.0); Mean Platelet Volume 10.8 fL (7.4-10.4); Platelet Count 194 10x3/uL (130-400); Red Blood Cell (RBC) Count 4.77 mill/uL (4.20-5.40)
[2023-08-17 13:49] LABS: ALT (SGPT) 9 U/L (8-55); AST (SGOT) 12 U/L (5-34); Albumin 3.9 g/dL (3.4-4.8); Alkaline Phosphatase 101 U/L (40-110); Anion Gap 16 mmol/L (10-20); BUN (Urea Nitrogen) 36 mg/dL (9.8-20.1); Bilirubin, Total 0.7 mg/dL (0.2-1.2); Calc. Creatinine Clearance 0 mL/min (70-130); Calcium 10.6 mg/dL (7.8-10.44); Carbon Dioxide 18 mmol/L (23-31); Chloride 103 mmol/L (98-107); Estimated GFR 31; Globulin 3.5 g/dL (2.4-3.5); Glucose 162 mg/dL (83-110); Lipase 38 U/L (8-78); Potassium 4.7 mmol/L (3.5-5.1); Protein, Total 7.4 g/dL (5.8-8.1); Sodium 132 mmol/L (136-145)
[2023-08-17 15:57] LABS: Bacteria/HPF 3+ HPF (None Seen); Bilirubin Negative (Negative); Blood, Urine 1+ (Negative); CAUTI Indications for Culture Dysuria,urgency,freq; Clarity Clear (Clear); Glucose, Urine (Dipstick) 500 mg/dL (Negative); Ketone, Urine Negative (Negative); Leukocyte 250 Leu/uL (Negative); Nitrite 1+ (Negative); Protein, Urine (Dipstick) Negative (Neg-Trace); RBC/HPF 0-3 HPF (0-3); Specific Gravity, Urine 1.019 (1.002-1.036); Squamous Epithelial 0-3 HPF (0-3); Urobilinogen Normal mg/dL (Less than 2); WBC/HPF 21-50 HPF (0-3); Yeast-Budding 1+ HPF (None Seen); pH, Urine 5.5 (5.0-9.0)
[2023-08-17 16:01] LABS: Urine Culture Reflex Yes Yes
== END 2023-08-17 16:30 | disposition home or self-care (01) ==
LOC: ERS 12:08
DX: N39.0 Urinary tract infection, site not specified (principal); E86.0 Dehydration; R74.02 Elevation of levels of lactic acid dehydrogenase [LDH]; E11.9 Type 2 diabetes mellitus without complications; I10 Essential (primary) hypertension
CPT/HCPCS: 36416; 74177; 80053; 81001; 83605; 83690; 83735; 85025; 87077; 87086; 87186; 93005

== ENCOUNTER 2024-02-22 18:15 | Emergency (ER) | payer BC, MEDICARE, SELFPAY ==
[2024-02-22] MEDS ORDERED: Acetaminophen 500 MG TAB ONE (18:40)
[2024-02-22] MEDS ORDERED: Lidocaine 1% PF 5 ML VIAL ONE (18:40)
[2024-02-22] MEDS ORDERED: Boostrix 0.5 ML (Tdap) VIAL (>/=7 yrs of age) ONE (18:46)
[2024-02-22 19:33] LABS: #Basophils 0.05 10x3/uL (0.0-0.2); %Basophils 0.4 % (0.0-1.0); %Eosinophils 4.3 % (0.0-10.0); %Lymphocytes 18.3 % (21.0-51.0); %Monocytes 6.8 % (0.0-10.0); %Neutrophils 69.3 % (42.0-75.0); Hematocrit 42.3 % (36.0-47.0); Hemoglobin 14.1 g/dL (12.0-16.0); Mean Corpuscular HGB CONC 33.3 g/dL (32.0-36.0); Mean Corpuscular Hemoglobin 30.1 pg (27.0-31.0); Mean Corpuscular Volume 90.4 fL (78.0-98.0); Mean Platelet Volume 10.6 fL (7.4-10.4); Platelet Count 215 10x3/uL (130-400); RBC Distribution Width 14.3 % (11.5-14.5); Red Blood Cell (RBC) Count 4.68 mill/uL (4.20-5.40)
[2024-02-22 19:52] LABS: ALT (SGPT) 10 U/L (8-55); AST (SGOT) 12 U/L (5-34); Alkaline Phosphatase 108 U/L (40-110); Anion Gap 14 mmol/L (10-20); BUN (Urea Nitrogen) 25 mg/dL (9.8-20.1); Bilirubin, Total 0.6 mg/dL (0.2-1.2); Calc. Creatinine Clearance 0 mL/min (70-130); Calcium 9.8 mg/dL (7.8-10.44); Carbon Dioxide 22 mmol/L (23-31); Chloride 105 mmol/L (98-107); Estimated GFR 50; Globulin 3.5 g/dL (2.4-3.5); Glucose 109 mg/dL (83-110); Potassium 3.8 mmol/L (3.5-5.1); Protein, Total 7.5 g/dL (5.8-8.1); Sodium 137 mmol/L (136-145)
[2024-02-22 19:58] LABS: INR-International Normal Ratio 1.4; PTT 36.4 sec (22.9-36.1); Prothrombin Time 17.5 sec (12.0-14.7)
[2024-02-22 20:15] LABS: Troponin I 0.012 ng/mL (< 0.028)
== END 2024-02-22 22:58 | disposition home or self-care (01) ==
LOC: ERS 18:15
DX: S81.812A Laceration without foreign body, left lower leg, initial encounter (principal); I10 Essential (primary) hypertension; E11.9 Type 2 diabetes mellitus without complications; Z23 Encounter for immunization; R10.9 Unspecified abdominal pain; I48.91 Unspecified atrial fibrillation; W01.110A Fall on same level from slipping, tripping and stumbling with subsequent striking against sharp glass, initial encounter; Z79.01 Long term (current) use of anticoagulants
CPT/HCPCS: 12001; 36415; 70450; 71260; 72125; 74177; 80053; 83880; 84484; 85025; 85610; 85730; 90471; 90715; 93005; Q9967